=== PATIENT | male | born 1975 | race Caucasian/White ===

== ENCOUNTER 2017-11-14 19:06 | Emergency (ER) | payer MEDICAID ==
[~2017-11-14] VITALS: Ht 167.6 cm; Wt 96.0 kg
[2017-11-14 19:22] VITALS: BP 118/68; PULSE 110; RESP 18; TEMP 99.1; O2SAT 96
[2017-11-14] MEDS ORDERED: BUSP10TA PO (20:13)
[2017-11-14] MEDS ORDERED: ZOLO50TA PO (20:13)
[2017-11-14] MEDS ORDERED: TEST200I13 IM (20:13)
[2017-11-14] MEDS ORDERED: ATOR10TA15 PO (20:13)
[2017-11-14] MEDS ORDERED: CYMB30CA PO (20:13)
[2017-11-14] MEDS ORDERED: LEVO100T5 PO (20:13)
== END 2017-11-14 20:51 | disposition left against medical advice (07) ==
LOC: PHEFT 19:06
DX: T14.8XXA Other injury of unspecified body region, initial encounter (principal)
CPT/HCPCS: 99281